=== PATIENT | female | born 2000 | race Two or more races ===

== ENCOUNTER → 2024-01-22 08:14 | Outpatient (REF) | payer OTHER, SELFPAY | LOC: WDC 08:14 | PROVIDERS: ATTENDING PHYSICIAN Obstetrics & Gynecology Gynecology; FAMILY PHYSICIAN Student in an Organized Health Care Education/Training Program | DX: R92.8 Other abnormal and inconclusive findings on diagnostic imaging of breast (principal) | CPT/HCPCS: 76642 ==